=== PATIENT | male | born 1975 | race Caucasian/White ===

== ENCOUNTER 2017-02-07 12:49 | Emergency (ER) | payer OTHER ==
[~2017-02-07] VITALS: Ht 160 cm; Wt 56.7 kg
[2017-02-07 12:49] VITALS: BP 143/88
[2017-02-07] MEDS ORDERED: BENADRYL25 MG PO (13:05)
== END 2017-02-07 13:05 | disposition home or self-care (01) ==
LOC: ER 12:49
DX: L30.9 Dermatitis, unspecified (principal)